=== PATIENT | male | born 1950 | race Caucasian/White ===

== ENCOUNTER 2024-12-29 09:45 | Inpatient (IN) | payer OTHER ==
[~2024-12-29] VITALS: Ht 274.3 cm; Wt 83.0 kg
[~2024-12-29 09:45] MED LIST: ULTRACET PO
[2024-12-29] MEDS ORDERED: METFORMIN HCL1000 M2 PO (11:25)
[2024-12-29] MEDS ORDERED: LOSARTAN-HCTZ1 EAC2 PO (11:25)
[2024-12-29] MEDS ORDERED: SYNTHROID112 MCG PO (11:26)
[2024-12-29] MEDS ORDERED: BUSPIRONE HCL15 MG PO (11:27)
[2024-12-29] MEDS ORDERED: MYSOLINE50 MG PO (11:27)
[2025-01-04] MEDS ORDERED: PERCOCET 5-3251 EACH PO (10:00)
[2025-01-04] MEDS ORDERED: MEDROLPACK PO (10:00)
[2025-01-04] MEDS ORDERED: ZOFRAN8 MG PO (10:01)
[2025-01-04] MEDS ORDERED: COLACE100 MG PO (10:01)
[2025-01-04] MEDS ORDERED: AMOX-CLAV 875-1 EACH PO (10:01)
[2025-01-04] MEDS ORDERED: NEURONTIN800 MG PO (10:02)
[2025-01-04] MEDS ORDERED: GABAPENTIN100 M2 PO (10:02)
[2025-01-04] MEDS ORDERED: CEFAZOLIN SODIUM 1,000 MG VIAL ONE (10:44)
[2025-01-04] MEDS ORDERED: VANCOMYCIN HCL 1,000 MG VIAL ONE ×2 (10:44→11:56)
[2025-01-04] MEDS ORDERED: PROMETHAZINE HCL 50 MG/ML AMPUL IM PRN (11:45)
[2025-01-04] MEDS ORDERED: 0.9 % SODIUM CHLORIDE 1,000 ML IV SCH (11:45)
[2025-01-04] MEDS ORDERED: ENALAPRILAT DIHYDRATE 1.25 MG/ML VIAL IV PRN (11:45)
[2025-01-04] MEDS ORDERED: METHYLPREDNISOLONE ACETATE 80 MG/ML VIAL ONE (11:56)
[2025-01-04] MEDS ORDERED: METHYLPREDNISOLONE SOD SUCC 125 MG VIAL ONE (11:56)
[2025-01-04] MEDS ORDERED: BUSPIRONE HCL 15 MG TABLET PO SCH (13:00)
[2025-01-04] MEDS ORDERED: DOCUSATE SODIUM 100MG CAP PO SCH (13:00)
[2025-01-04] MEDS ORDERED: CARBIDOPA/LEVODOPA 25/100 UDTAB PO SCH (13:00)
[2025-01-04] MEDS ORDERED: MORPHINE SULFATE 4 MG/ML CARTRIDGE IV SCH (13:00)
[2025-01-04] MEDS ORDERED: IOVERSOL 320 MG/ML - 50 ML VIAL IV ONE (13:02)
[2025-01-04] MEDS ORDERED: BACITRACIN 15 GM OINT.TUBE TOP ONE (14:50)
[2025-01-04] MEDS ORDERED: MORPHINE SULFATE 4 MG/ML VIAL IV ONE ×4 (15:05→20:35)
[2025-01-04] MEDS ORDERED: METHYLPREDNISOLONE SOD SUCC 125 MG VIAL IV SCH (17:00)
[2025-01-04] MEDS ORDERED: MetFORMIN HCL 1000 MG TABLET PO SCH (17:00)
[2025-01-04] MEDS ORDERED: CEFAZOLIN SODIUM 1,000 MG in 0.9 % SODIUM CHLORIDE 50 ML IV SCH (17:00)
[2025-01-04] MEDS ORDERED: ENALAPRILAT DIHYDRATE 1.25 MG/ML VIAL IV ONE (17:20)
[2025-01-04] MEDS ORDERED: ACETAMINOPHEN 500 MG GEL..CAP PO SCH (20:00)
[2025-01-04] MEDS ORDERED: VANCOMYCIN HCL 1,000 MG VIAL IV SCH (21:00)
[2025-01-04] MEDS ORDERED: GABAPENTIN 800 MG TABLET PO SCH (21:00)
[2025-01-04 22:24] VITALS: BP 155/65; O2SAT 94
[2025-01-05] VITALS (9 sets, daily range): BP systolic 144–170; BP diastolic 71–77; O2SAT 90–97
[2025-01-05] MEDS ORDERED: SODIUM CHLORIDE 0.45 % 1,000 ML IV SCH
[2025-01-05] MEDS ORDERED: LEVOTHYROXINE SODIUM 112 MCG TABLET PO SCH (06:00)
[2025-01-05] MEDS ORDERED: OxyCODONE HCL 5 MG TABLET (ROXICODONE) PO SCH (06:01)
[2025-01-05] MEDS ORDERED: VANCOMYCIN HCL 1,000 MG VIAL ONE ×2 (06:20→15:34)
[2025-01-05 07:53] LABS: BASO % 0.1 % (0.1-1.2); EOS # 0.00 (0.04-0.54); EOS % 0.0 % (0.7-7.0); LYMPH # 0.65 (1.18-3.74); LYMPH % 6.0 % (19.3-53.1); MEAN PLATELET VOLUME 11.10 fl (9.4-12.4); MONO # 0.35 (0.24-0.82); MONO % 3.2 % (4.7-12.5); NEUT # 9.79 (1.56-6.13); NEUT % 90.1 % (34.0-71.1); RED CELL DISTRIBUTION WIDTH 13.1 % (11.6-14.4)
[2025-01-05 08:25] LABS: BUN CREA RATIO 25.0 (7.0-25.0); CREATININE SERUM 0.93 mg/dL (0.70-1.30); GFR 79.0; OSMOLALITY SERUM 282.0 MOSM/KG (275-295)
[2025-01-05 08:28] LABS: GLUCOSE FASTING 215.0 mg/dL (65-100)
[2025-01-05] MEDS ORDERED: LOSARTAN/HYDROCHLOROTHIAZIDE 1 UDTAB TABLET PO SCH (09:00)
[2025-01-05] MEDS ORDERED: SERTRALINE HCL 100 MG TABLET PO SCH (09:00)
[2025-01-05] MEDS ORDERED: TAMSULOSIN HCL 0.4 MG CAP PO SCH (09:00)
[2025-01-05 17:09] LABS: COVID-19 AG NEGATIVE (NEGATIVE)
[2025-01-06 00:48] VITALS: O2SAT 90
[2025-01-06 01:20] VITALS: BP 135/62; O2SAT 98
[2025-01-06 05:47] VITALS: O2SAT 91
[2025-01-06 10:01] VITALS: O2SAT 94
[2025-01-06 13:24] VITALS: O2SAT 92
[2025-01-06 16:00] VITALS: BP 170/77; O2SAT 97
== END 2025-01-06 17:51 | DRG 402 ==
LOC: SURH 01-04 09:45 → O/R 01-04 10:04 → SURH 01-04 10:04
PROVIDERS: ADMIT Orthopaedic Surgery Orthopaedic Surgery of the Spine; ATTEND Orthopaedic Surgery Orthopaedic Surgery of the Spine
PROC: 0SG0071 Fusion of Lumbar Vertebral Joint with Autologous Tissue Substitute, Posterior Approach, Posterior Column, Open Approach (ICD-10-PCS; 2025-01-04)
PROC: 0ST20ZZ Resection of Lumbar Vertebral Disc, Open Approach (ICD-10-PCS; 2025-01-04)
PROC: 07DR0ZZ Extraction of Iliac Bone Marrow, Open Approach (ICD-10-PCS; 2025-01-04)
PROC: 4A12X4Z Monitoring of Cardiac Electrical Activity, External Approach (ICD-10-PCS; 2025-01-04)
PROC: 4A12X4Z Monitoring of Cardiac Electrical Activity, External Approach (ICD-10-PCS; 2025-01-04)
PROC: XRGB0R7 Fusion of Lumbar Vertebral Joint using Custom-Made Anatomically Designed Interbody Fusion Device, Open Approach, New Technology Group 7 (ICD-10-PCS; principal; 2025-01-04 13:00)
DX: M48.062 Spinal stenosis, lumbar region with neurogenic claudication (principal); M43.16 Spondylolisthesis, lumbar region; M41.56 Other secondary scoliosis, lumbar region; G20.A1 Parkinson's disease without dyskinesia, without mention of fluctuations; I10 Essential (primary) hypertension